=== PATIENT | male | born 1940 | race African-American/Black ===

== ENCOUNTER 2016-08-11 09:32 | Emergency (ER) | payer MEDICARE ==
[~2016-08-11] VITALS: Ht 170.2 cm; Wt 96.2 kg
[2016-08-11] MEDS ORDERED: MECLIZINE HCL 12.5 MG TABLET. PO ONE (10:15)
--- NOTE | 2016-08-11 10:26 | EKG ---
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
[2016-08-11 10:33] LABS: BASO # 0.1 x10^3/uL (0.0-0.2); BASO % 1 % (0-3); EOS % 4 % (0-3); HEMATOCRIT 43.5 % (39.0-53.0); HEMOGLOBIN 14.5 g/dL (13.0-17.5); LYMPH # 1.5 x10^3/uL (1.0-4.8); LYMPH % 34 % (24-48); MEAN CORPUSCULAR HEMOGLOBIN 29 pg (25-35); MEAN CORPUSCULAR HGB CONC 33 g/dL (31-37); MEAN CORPUSCULAR VOLUME 87 fL (79-100); MONO % 9 % (0-9); NEUT % 52 % (31-73); PLATELET COUNT 182 x10^3/uL (140-400); RED CELL DISTRIBUTION WIDTH 14.5 % (11.5-14.5); WHITE BLOOD COUNT 4.4 x10^3/uL (4.0-11.0)
[2016-08-11 10:47] LABS: INR 1.1 (0.8-1.1); PROTHROMBIN TIME PATIENT 13.9 SEC (11.7-14.0)
--- NOTE | 2016-08-11 10:56 | RAD ---
CT of the head without contrast, 08/11/2016: History: Dizziness The ventricles are within normal limits in size. There is no shift of the midline structures. There is no evidence of acute intracranial hemorrhage or mass effect. Mild mucosal thickening is present in both ethmoid sinuses as well as the left frontal and maxillary sinuses. The mastoid sinuses are unremarkable. IMPRESSION: No acute intracranial abnormality is detected. PQRS Compliance Statement: One or more of the following individualized dose reduction techniques were utilized for this examination: 1. Automated exposure control 2. Adjustment of the mA and/or kV according to patient size 3. Use of iterative reconstruction technique
--- NOTE | 2016-08-11 10:58 | RAD ---
Portable chest, 08/11/2016: History: Dizziness and weakness Comparison is made to a study from 05/05/2010. The heart size and pulmonary vascularity are normal. There is minimal linear scarring or atelectasis in the left base. The lungs are otherwise clear. There is no evidence of pleural fluid. IMPRESSION: Minimal left basilar linear atelectasis or scarring.
[2016-08-11 11:03] LABS: CREATININE 1.2 mg/dL (0.7-1.3); POTASSIUM 3.8 mmol/L (3.5-5.1)
[2016-08-11 11:04] LABS: ALBUMIN 3.5 g/dL (3.4-5.0); TOTAL BILIRUBIN 0.4 mg/dL (0.2-1.0)
[2016-08-11 11:29] LABS: BILIRUBIN,URINE NEGATIVE (NEG); GLUCOSE,URINE NEGATIVE (NEG); NITRITE,URINE NEGATIVE (NEG); PROTEIN,URINE NEGATIVE (NEG-TRACE); UROBILINOGEN,URINE 0.2 mg/dL (0.2 mg/dL)
[2016-08-11 11:41] LABS: BACTERIA,URINE 0 /HPF (0-FEW); WBC,URINE 0 /HPF (0-4)
[2016-08-11 11:42] LABS: RBC,URINE OCC /HPF (0-2)
--- NOTE | 2016-08-11 12:09 | PHYS DOC ---
Past Medical History Past Medical History: Hypertension Past Surgical History: Tonsillectomy, Other Additional Past Surgical Histo: R knee scope, carpal tunnel bilat, Additional Information: nonsmoker Alcohol Use: Occasionally Drug Use: None Adult General Chief Complaint Chief Complaint: DIZZY/LIGHT HEADED HPI HPI Patient is a 76 year old male who presents with dizziness for 4 days. He describes both a spinning sensation and feeling lightheaded. He notices the dizziness when turning his head or when standing up from sitting. He denies any associated symptoms. He does not have headache, vision changes, weakness, or numbness. He has not had nausea, vomiting, diarrhea, or abdominal pain, although he states that he feels like he may be dehydrated, causing his dizziness. He denies chest pain, shortness of breath, or palpitations. He has not had otalgia, tinnitus, nasal congestion, or sore throat. The patient reports that he had similar symptoms a few years ago. The dizziness resolved spontaneously and did not last this long. He was not evaluated for the dizziness at that time. He has a history of hypertension but denies history of diabetes, elevated cholesterol, CAD, or stroke. He does not have a family history of CAD or stroke. His PCP is Dr. Tony Dee. Review of Systems Review of Systems Constitutional: Denies fever or chills. [] Eyes: Denies change in visual acuity, redness, or eye pain. [] HENT: Denies ear pain, nasal congestion or sore throat. Denies tinnitus. Respiratory: Denies cough or shortness of breath. [] Cardiovascular: Denies chest pain, palpitations or edema. [] GI: Denies abdominal pain, nausea, vomiting, bloody stools or diarrhea. [] : Denies dysuria, hematuria or urinary frequency. [] Musculoskeletal: Denies back pain or joint pain. [] Integument: Denies rash or skin lesions. [] Neurologic: Denies headache, focal weakness or sensory changes. Reports feeling lightheaded with vertigo. Endocrine: Denies polyuria or polydipsia. [] Psych: Denies anxiety or depression. [] All systems reviewed and negative unless otherwise stated in the HPI. Current Medications Current Medications Current Medications Medications (Trade) Dose Ordered Sig/Roosevelt Start Time Stop Time Status Last Admin Dose Admin Meclizine HCl (Antivert) 25 mg 1X ONCE 08/11/16 10:15 08/11/16 10:20 DC 08/11/16 11:09 25 MG Allergies Allergies Allergies Coded Allergies Type Severity Reaction Last Updated Verified codeine Allergy Unknown 08/11/16 Yes hydrocodone Allergy Unknown 08/11/16 Yes Physical Exam Physical Exam Constitutional: Well developed, well nourished, no acute distress, non-toxic appearance. [] HENT: Normocephalic, atraumatic, bilateral external ears normal, oropharynx moist, no oral exudates, nose normal. Bilateral TMs without erythema or bulging. There is no fluid behind the TMs. Eyes: PERRLA, EOMI, conjunctiva normal, no discharge. There is mild vertical nystagmus with right lateral gaze. The patient does not report reproducible symptoms with movement of the head or eyes. Neck: Normal range of motion, no tenderness, supple, no stridor. No nuchal rigidity or meningeal signs. Cardiovascular: Heart rate regular rhythm, no murmur [] Lungs & Thorax: Bilateral breath sounds clear to auscultation without wheezes, rales, or rhonchi. Abdomen: Bowel sounds normal, soft, no tenderness, no masses, no pulsatile masses. [] Skin: Warm, dry, no erythema, no rash. [] Back: No tenderness, no CVA tenderness. [] Extremities: No tenderness, no cyanosis, no clubbing, ROM intact, no edema. 2+ DP pulses bilaterally. Neurologic: Alert and oriented X 3, normal motor function, normal sensory function, no focal deficits noted. CN II-XII grossly intact. Normal cerebellar function with finger-nose test. Psychologic: Affect normal, judgement normal, mood normal. [] Current Patient Data Vital Signs Vital Signs Date Time Temp Pulse Resp B/P Pulse Ox O2 Delivery O2 Flow Rate FiO2 08/11/16 12:20 89 18 138/84 98 Room Air 08/11/16 09:43 97.0 97.0 Lab Values Laboratory Tests Test 08/11/16 10:20 08/11/16 11:10 White Blood Count 4.4x10^3/uL (4.0-11.0) Red Blood Count 5.00x10^6/uL (4.30-5.70) Hemoglobin 14.5g/dL (13.0-17.5) Hematocrit 43.5% (39.0-53.0) Mean Corpuscular Volume 87fL (79-100) Mean Corpuscular Hemoglobin 29pg (25-35) Mean Corpuscular Hemoglobin Concent 33g/dL (31-37) Red Cell Distribution Width 14.5% (11.5-14.5) Platelet Count 182x10^3/uL (140-400) Neutrophils (%) (Auto) 52% (31-73) Lymphocytes (%) (Auto) 34% (24-48) Monocytes (%) (Auto) 9% (0-9) Eosinophils (%) (Auto) 4% (0-3) H Basophils (%) (Auto) 1% (0-3) Neutrophils # (Auto) 2.3x10^3uL (1.8-7.7) Lymphocytes # (Auto) 1.5x10^3/uL (1.0-4.8) Monocytes # (Auto) 0.4x10^3/uL (0.0-1.1) Eosinophils # (Auto) 0.2x10^3/uL (0.0-0.7) Basophils # (Auto) 0.1x10^3/uL (0.0-0.2) Prothrombin Time 13.9SEC (11.7-14.0) Prothrombin Time INR 1.1 (0.8-1.1) Sodium Level 145mmol/L (136-145) Potassium Level 3.8mmol/L (3.5-5.1) Chloride Level 108mmol/L (98-107) H Carbon Dioxide Level 29mmol/L (21-32) Anion Gap 8 (6-14) Blood Urea Nitrogen 18mg/dL (8-26) Creatinine 1.2mg/dL (0.7-1.3) Estimated GFR (Cockcroft-Gault) 71.0 BUN/Creatinine Ratio 15 (6-20) Glucose Level 107mg/dL (70-99) H Calcium Level 9.0mg/dL (8.5-10.1) Total Bilirubin 0.4mg/dL (0.2-1.0) Aspartate Amino Transferase (AST) 15U/L (15-37) Alanine Aminotransferase (ALT) 16U/L (16-63) Alkaline Phosphatase 69U/L (46-116) Troponin I Quantitative 0.032ng/mL (0.000-0.055) XZ-[id number]-Type Natriuretic Peptide 190pg/mL (0-449) Total Protein 7.0g/dL (6.4-8.2) Albumin 3.5g/dL (3.4-5.0) Albumin/Globulin Ratio 1.0 (1.0-1.7) Urine Collection Type Void Urine Color Yellow Urine Clarity Clear Urine pH 7.0 Urine Specific [place] 1.015 Urine Protein Negativemg/dL (NEG-TRACE) Urine Glucose (UA) Negativemg/dL (NEG) Urine Ketones (Stick) Negativemg/dL (NEG) Urine Blood Negative (NEG) Urine Nitrite Negative (NEG) Urine Bilirubin Negative (NEG) Urine Urobilinogen Dipstick 0.2mg/dL (0.2 mg/dL) Urine Leukocyte Esterase Negative (NEG) Urine RBC Occ/HPF (0-2) Urine WBC 0/HPF (0-4) Urine Squamous Epithelial Cells None/LPF Urine Bacteria 0/HPF (0-FEW) Urine Hyaline Casts Moderate/HPF Urine Mucus Slight/LPF Laboratory Tests 08/11/16 10:20 Laboratory Tests 08/11/16 10:20 EKG EKG EKG at 1025. Heart rate 92 bpm. Sinus rhythm with PACs, left axis deviation, left anterior fascicular block, prolonged QT. There are no acute changes or STEMI, as interpreted by Dr. Knowles. Radiology/Procedures Radiology/Procedures REASON: dizziness PROCEDURE: HEAD WO CONTRAST CT of the head without contrast, 08/11/2016: History: Dizziness The ventricles are within normal limits in size. There is no shift of the midline structures. There is no evidence of acute intracranial hemorrhage or mass effect. Mild mucosal thickening is present in both ethmoid sinuses as well as the left frontal and maxillary sinuses. The mastoid sinuses are unremarkable. IMPRESSION: No acute intracranial abnormality is detected. REASON: dizziness PROCEDURE: CHEST AP ONLY Portable chest, 08/11/2016: History: Dizziness and weakness Comparison is made to a study from 05/05/2010. The heart size and pulmonary vascularity are normal. There is minimal linear scarring or atelectasis in the left base. The lungs are otherwise clear. There is no evidence of pleural fluid. IMPRESSION: Minimal left basilar linear atelectasis or scarring. Course & Med Decision Making Course & Med Decision Making Pertinent Labs and Imaging studies reviewed. (See chart for details) Orthostatic vital signs Lay: BP 127/77, pulse 90 Sit: BP 136/81, pulse 93 Stand: BP 150/85, pulse 98 ED course: The patient is a 76-year-old male who presents with 4 days of dizziness described as vertiginous and lightheaded feeling. Upon arrival to the emergency department, his vital signs are stable. On exam, there are no neurologic deficits. He has mild nystagmus with right eye gaze. His symptoms are not reproducible with change in position. His orthostatic vital signs are stable. CT of the head does not show any acute abnormalities. Chest x-ray also does not show any acute antibiotics. There are no significant laboratory abnormalities. Patient reported mild improvement in his symptoms with Antivert. Patient course was discussed with Dr. Knowles. He recommends MRI of the brain without contrast to evaluate for cerebellar stroke. I discussed the results with the patient. We discussed possible etiologies for his dizziness, including a cerebellar stroke, and that a cerebellar stroke cannot be ruled out based on this initial workup. The patient refuses MRI, stating that he is unable to tolerate the machine. I offered pre-treatment with anxiety medication, but he declines. We discussed strict return precautions, including headache, weakness or numbness, vision changes, chest pain, shortness of breath, or other new or concerning symptoms. He is instructed to follow up with his PCP in 1-2 days. He is also given contact information for neurology for follow up. The patient verbalizes understanding of all of the above and agrees with plan for discharge with close follow up. Dragon Disclaimer Dragon Disclaimer This electronic medical record was generated, in whole or in part, using a voice recognition dictation system. Departure Departure Impression: Primary Impression: Vertigo Disposition: 01 HOME, SELF-CARE Condition: STABLE Referrals: BRUCE TAN MD (PCP) SARAH MILNER MD Patient Instructions: Vertigo, [id number] Additional Instructions: You were seen for dizziness today. Your CT, xray, and labs did not show any concerning abnormalities today. Please follow up with your primary care provider in the next 1-2 days. Please also follow up with the neurologist listed below. Return to the emergency department if you have worsening of your dizziness, headache, weakness or numbness in part of her body, chest pain, shortness of breath, vision changes, or other new or concerning symptoms. OG GUTIERREZ Aug 11, 2016 12:09
[2016-08-11 12:20] VITALS: BP 138/84
== END 2016-08-11 12:28 | disposition home or self-care (01) ==
LOC: ER 09:32
DX: R42 Dizziness and giddiness (principal); I10 Essential (primary) hypertension; H55.00 Unspecified nystagmus; Z79.01 Long term (current) use of anticoagulants; Z88.5 Allergy status to narcotic agent
CPT/HCPCS: 36415; 70450; 71010; 80053; 81001; 83880; 84484; 85027; 85610; 93005; 99285; J8597

== ENCOUNTER 2017-03-05 13:14 | Emergency (ER) | payer MEDICARE ==
[2017-03-05 13:40] VITALS: BP 139/81
== END 2017-03-05 14:16 | disposition left against medical advice (07) ==
LOC: ER 13:14
DX: M25.522 Pain in left elbow (principal); I10 Essential (primary) hypertension; Z53.21 Procedure and treatment not carried out due to patient leaving prior to being seen by health care provider; Z88.5 Allergy status to narcotic agent

== ENCOUNTER 2017-09-18 13:01 | Emergency (ER) | payer MEDICARE ==
[~2017-09-18 13:01] MED LIST: EPINEPHrine SYRINGE 1 MG/10 ML SYRINGE
== END 2017-09-18 17:10 | disposition expired ==
LOC: ER 13:01
DX: I46.9 Cardiac arrest, cause unspecified (principal); I10 Essential (primary) hypertension; G56.03 Carpal tunnel syndrome, bilateral upper limbs; Z88.5 Allergy status to narcotic agent
CPT/HCPCS: 92950; 99285; J0171